=== PATIENT | female | born 1940 | race Caucasian/White ===

== ENCOUNTER 2017-09-18 03:18 | Inpatient (IN) | payer OTHER, MEDICARE ==
[~2017-09-18] VITALS: Ht 157.5 cm; Wt 76.2 kg
[~2017-09-18 03:18] MED LIST: MULTIVITAMINS1 EAC9 PO; SYNTHROID100 MCG PO
--- NOTE | 2017-09-18 10:52 | Admission Core Measures ---
Acute Coronary Syndrome (CM) ACS Core Measures Acute Coronary Syndrome Diagnosis No Congestive Heart Failure (NEW) CHF Core Measures Congestive Heart Failure Diagnosis No Cerebrovascular Accident CVA Core Measures CVA/TIA Diagnosis No Venous Thromboembolism VTE Core Valerio (View Protocol) VTE Risk Factors Surgery No Mechanical VTE Prophylaxis d/t N/A MechProphylax Ordered No VTE Pharm Prophylaxis d/t NA PharmProphylax ordered Problem List As ranked by this Provider includes Assessment & Plan 1. Unilateral primary osteoarthritis, left hip HOME MEDS Home Med List Levothyroxine Sodium (Synthroid) 100 MCG TABLET 1 TAB PO DAILY THYROID ( Reported) Multiple Vitamin (Multivitamins) 1 EACH TABLET 1 TAB PO DAILY SUPPLEMENT ( Reported)
[2017-09-18] MEDS ORDERED: COLACE100 M1 PO (10:55)
[2017-09-18] MEDS ORDERED: DILAUDID2 M1 PO (10:55)
[2017-09-18] MEDS ORDERED: ASPIRIN EC81 M1 PO (10:55)
[2017-09-18] MEDS ORDERED: PRILOSEC OTC20 M1 PO (10:55)
[2017-09-18] MEDS ORDERED: MIRALAX17 G1 PO (10:55)
--- NOTE | 2017-09-18 10:58 | Patient Discharge Instructions ---
Discharge Instructions General Discharge Information You were seen/treated for: Left hip pain related to unilateral primary osteoarthritis You had these procedures: Left total hip replacement Watch for these problems: Increasing pain despite the use of pain medication Increasing redness, warmth or swelling Drainage of any type from incision Inability to bear weight on operative leg Persistent nausea and vomiting Fever greater than 101.5 degrees Do not soak the wound: Yes No bath, but you may shower: Yes Other wound care: Please keep wound clean and dry. No ointments or lotions of any type on or near incision at any time. No exceptions. Your dressing will be changed by your nurse on the second day after your surgery. Daily dry dressing changes are recommended each day thereafter. Do not soak your wound in a bath or pool at any time until otherwise indicated by your surgeon. You may shower, please dry wound immediately after shower with a clean towel. Special Instructions: Aspirin: You are taking this medication to help prevent blood clot formation. Please take with food to protect your stomach lining. Please take as directed. Constipation: Pain medication can cause constipation. Your surgeon has recommended that you take Colace and miralax each day. You may discontinue this medication if you develop loose stool or diarrhea. If you wish to continue this medication, it is available over the counter. If you are unable to move your bowels after several days, if you are unable to pass gas and are developing bloating, nausea, or vomiting as a result, please contact your doctor. Diet Continue normal diet: Yes Recommended Diet: Regular Activity Full Activity/No Limits: No Activity Self Limited: Yes Pounds, do NOT lift more than: 10 Acute Coronary Syndrome Inclusion Criteria At DC or during hospital stay patient has or had the following: ACS DIAGNOSIS No Discharge Core Measures Meds if any: Prescribed or Continued at Discharge Meds if any: NOT Prescribed or Continued at Discharge Congestive Heart Failure Inclusion Criteria At DC or during hospital stay patient has or had the following: CHF DIAGNOSIS No Discharge Core Measures Meds if any: Prescribed or Continued at Discharge Meds if any: NOT Prescribed or Continued at Discharge Cerebrovascular accident Inclusion Criteria At DC or during hospital stay patient has or had the following: CVA/TIA Diagnosis No Discharge Core Measures Meds if any: Prescribed or Continued at Discharge Meds if any: NOT Prescribed or Continued at Discharge Venous thromboembolism Inclusion Criteria VTE Diagnosis No VTE Type NONE VTE Confirmed by (Test) NONE Discharge Core Measures - Per Current guidelines, there needs to be overlap - treatment for the first 5 days of Warfarin therapy. - If discharged on Warfarin prior to 5 days of - overlap therapy, the patient will need to be - assessed for post discharge needs including - *Post discharge parental anticoagulation - *Warfarin and/or parental anticoagulation education - *Follow up date to check INR post discharge At least 5 days overlap therapy as Inpatient No Meds if any: Prescribed or Continued at Discharge Note: Overlap Therapy is Warfarin and Anticoagulant Meds if any: NOT Prescribed or Continued at Discharge
--- NOTE | 2017-09-18 11:00 | Surgical Discharge Summary ---
Visit Information Visit Dates Admission Date: 09/18/17 Discharge Date: 09/19/17 History of Present Illness Chief Complaint: Left hip pain related to unilateral primary osteoarthritis Surgical History Pertinent Surgical History: non-contributory Review of Systems: See H&P Hospital Course Course Attending Physician: Rickie Godinez MD Primary Care Physician: Nuria MONCADA,[facility] Course: Patient was admitted to the hospital for an elective total joint replacement. The procedure was tolerated well and patient was transferred to a general surgical floor. Diet was advanced and tolerated. The patient was evaluated and treated by physical therapy. At the time of hospital discharge, the vital signs were stable, neurovascular status was intact, and pain was controlled with the use of oral pain medications. Allergies: Coded Allergies: amoxicillin (ANAPHYLAXIS 09/08/17) cortisone (ANAPHYLAXIS 09/08/17) doxycycline (ANAPHYLAXIS 09/08/17) Disposition Summary Disposition Principal Diagnosis: Left hip unilateral primary osteoarthritis Additional Diagnosis: None Discharge Disposition: home health services Discharge Instructions General Discharge Information Code Status: Full Code Patient's Diet: Regular, advance as tolerated Patient's Activity: WBAT Follow-Up Instructions/Appts: Follow up with Dr. Godinez in 6 weeks from date of surgery. Please call office to arrange &/or confirm this appointment. Medications at Discharge Discharge Medications: Continue taking these medications: Levothyroxine Sodium (Synthroid) 100 MCG TABLET 1 Tablet ORAL DAILY Comments: Last Taken: 09/19/17 Time: 0640AM Multiple Vitamin (Multivitamins) 1 EACH TABLET 1 Tablet ORAL DAILY Comments: NOT GIVEN IN HOSPITAL Start taking the following new medications: Aspirin (Ecotrin*) 81 MG TABLET.DR 1 Tablet ORAL TWICE DAILY Qty = 60 No Refills Comments: Last Taken: 09/19/17 Time: 0922AM Hydromorphone HCl (Dilaudid) 2 MG TABLET 1-2 Tablet ORAL EVERY 4-6 HOURS NEEDED as needed for PAIN Qty = 36 No Refills Comments: Last Taken: 09/19/17 Time: 0923AM Docusate Sodium (Colace) 100 MG CAPSULE 1 Capsule ORAL TWICE DAILY Qty = 14 No Refills Instructions: DISCONTINUE USE IF YOU DEVELOP LOOSE STOOL OR DIARRHEA Comments: Last Taken: 09/19/17 Time: 0922AM Polyethylene Glycol 3350 (Miralax) 17 GRAM POWD.PACK 1 Packet ORAL DAILY Qty = 7 No Refills Instructions: dissolve in water, DISCONTINUE USE IF YOU DEVELOP LOOSE STOOL OR DIARRHEA Comments: Last Taken: 09/19/17 Time: 0922AM Omeprazole Magnesium (Prilosec Otc) 20 MG TABLET. 1 Tablet ORAL DAILY Qty = 30 No Refills Comments: NOT GIVEN IN HOSPITAL
--- NOTE | 2017-09-18 12:26 | RADIOLOGY REPORT ---
EXAMINATION: XR HIP, LEFT CLINICAL INFORMATION: Status post left total hip replacement. COMPARISON: None TECHNIQUE: Two views of the left hip. FINDINGS: The patient is status post total hip arthroplasty. The femoral head prosthesis is well centered within the acetabular cup which has an estimated lateral tilt of 58 degrees and anterior tilt of approximately 30 degrees. The femoral stem is well centered in the medullary cavity of proximal femoral diaphysis. No acute periprosthetic fracture. Drainage tube is present in the lateral aspect of the hip. There is postoperative soft tissue gas lateral to the hip. IMPRESSION: The components of the left total hip arthroplasty exhibit satisfactory position and alignment. No acute periprosthetic fracture.
[2017-09-18 14:00] VITALS: BP 98/50
--- NOTE | 2017-09-18 14:18 | PN- Orthopedic ---
Subjective Subjective: Postop check: Patient comfortable, mild soreness in the left thigh and hip. No acute events postoperatively. Recovering well from anesthesia. Objective Vital Signs and I&Os Intake & Output 09/18 0809/18 0000 09/17 1600 09/17 0809/17 0000 Intake Total Output Total Balance Patient 171 lb Weight Vital signs stable, afebrile Physical Exam: Well-developed well-nourished no apparent distress. HEENT: Atraumatic, extraocular motion intact Neck: Supple, no lymphadenopathy Respiratory: No respiratory distress Extremities: No edema Left lower extremity hip dressing in place, Dressing clean dry and intact Hemovac drain in place, holding self suction, small amount of bloody drainage noted in the Hemovac drain Mild thigh swelling No signs of infection. No shortening or rotation Hip range of motion is limited and without unexpected pain Neurovascularly intact distally Bilateral calves are supple, nontender. Neuro: Alert and oriented x3 Psych: Mood affect normal, normal memory normal judgment. Skin: Warm and dry, no rash on exposed skin Assessment/Plan Assessment/Plan Postop day #0 status post left total hip arthroplasty anterior approach Perioperative antibiotics. Pain medication as needed. Out of bed Physical therapy, weightbearing as tolerated Continue IV fluids Continue Hemovac drain Regular diet Follow a.m. labs, monitoring for acute blood loss anemia Aspirin for DVT prophylaxis ALPS for DVT prophylaxis Regular home meds Dressing change postop day 2 Disposition: Plan for discharge to home tomorrow with VNA services Core Measures Venous Thromboembolism VTE Risk Factors Surgery No Mechanical VTE Prophylaxis d/t N/A MechProphylax Ordered No VTE Pharm Prophylaxis d/t NA PharmProphylax ordered
--- NOTE | 2017-09-18 15:01 | Operative Report ---
Operative/Inv Procedure Report Surgery Date: 09/18/17 Name of Procedure: Left total hip replacement Pre-Operative Diagnosis: Primary left hip DJD Post-Operative Diagnosis: Same Estimated Blood Loss: 250 Surgeon/Fish Machine Feeder: Rickie Godinez MD Anesthesia: block Operative/Procedure Note Note: Description of Procedure: The patient was taken to the operating room and positively identified. After induction of spinal anesthesia and administration of appropriate pre-operative antibiotics, the patient was positioned supine on the operating room table and all bony prominences were well padded. After performing a surgical timeout, the left lower extremity was prepped and draped in the usual sterile fashion. A direct anterior approach was made to the left hip. The incision was carried sharply through superficial soft tissues to the level of the fascia. Meticulous hemostasis was maintained with Bovie electocautery. The fascia over the tensor fascia satnam muscle was opened sharply and the interval between the TFL and the sartorius was entered bluntly taking care to stay lateral to the lateral femoral cutaneous nerve. Retractors were placed around the femoral neck and the pericapsular fat was identified. The ascending branches of the lateral femoral circumflex vessels were identified and carefully coagulated. The pericapsular fat and anterior capsule were then resected. A napkin ring osteotomy was performed and the femoral head was removed without difficulty. Attention was then turned to the acetabulum. After appropriate placement of retractors, the acetabulum was exposed. Soft tissue was cleaned from the acetabular margin and notch. Overhanging osteophytes were removed and the teardrop was exposed. The acetabulum was then sequentially reamed to accept a 52 mm Nick Tritanium hemispherical solid shell. This was impacted into place in the appropriate position and fitted with a 32 mm Trident X3 zero degree polyethylene insert. Attention was then turned to the femur. After performing the appropriate ligament releases, the proximal femur was exposed. It was then sequentially broached to accept a size 3 Nick Accolade II stem. This was trialed for leg length and stability. The trial component was removed and the final component was impacted into place. The trunnion was carefully cleaned and fit with a 32 mm, +0 Biolox delta ceramic femoral head. The hip was reduced and put through a full range of motion and found to be stable. The articular space was then irrigated with sterile saline. The periarticular soft tissues were infilitrated with Marcaine. The fascial layer was closed with interrupted #1 vicryl suture and the skin was re-approximated with interrupted 2 -0 vicryl. The skin was closed with a running 3-0 V-Lock suture. Steri-strips and a sterile dressing were applied. The patient was awakened and taken to the recovery room in satisfactory condition.
[2017-09-18 15:57] VITALS: BP 108/60
[2017-09-18 20:19] VITALS: BP 113/53
[2017-09-19 00:05] VITALS: BP 106/50
[2017-09-19 04:05] VITALS: BP 98/49
[2017-09-19 06:39] VITALS: BP 90/50
[2017-09-19 08:16] LABS: ABSOLUTE BASOPHIL COUNT 0 /CUMM (0.0-0.2); ABSOLUTE EOSINOPHIL COUNT 0.1 /CUMM (0.0-0.7); ABSOLUTE GRANULOCYTE CT 4.9 /CUMM (1.4-6.5); ABSOLUTE LYMPH COUNT 0.6 /CUMM (1.2-3.4); ABSOLUTE MONOCYTE COUNT 0.4 /CUMM (0.10-0.60); BASOPHIL % 0.5 % (0.0-2.0); EOSINOPHIL % 1.5 % (0-5); HEMATOCRIT 33.4 % (37-47); MEAN CORPUSCULAR HGB 30.8 PG (27.0-31.0); MEAN CORPUSCULAR HGB CONC 32.8 G/DL (33.0-37.0); MEAN CORPUSCULAR VOLUME 93.7 FL (81.0-99.0); MEAN PLATELET VOLUME 9.6 FL (7.4-10.4); RBC DISTRIBUTION WIDTH 13.6 % (11.5-14.5); RED BLOOD CELL CT 3.56 /CUMM (4.20-5.40)
[2017-09-19 08:25] VITALS: BP 108/50
[2017-09-19 09:57] LABS: GRANULOCYTE % 81.8 % (42.2-75.2); PLATELET COUNT 258 /CUMM (130-400)
--- NOTE | 2017-09-19 10:43 | PN- Orthopedic ---
Subjective Subjective: pt sitting in chair, complains of mild pain in left hip. drain was pulled out this morning. pt has ambulated with physical therapy and was cleared for home. voiding. tolerating diet, no nausea. Denies paresthesias BP has been low but pt deneis AVERY or dizziness. Denies CP/SOB. Objective Vital Signs and I&Os Vital Signs Date Time Temp Pulse Resp B/P B/P Pulse O2 O2 Flow FiO2 Mean Ox Delivery Rate 09/19 0825 108/50 / 0639 90/50 / 0405 97.9 69 18 98/49 98 / 0005 97.6 67 18 106/50 97 09/18 2019 97.6 71 18 113/53 98 Room Air 09/18 1557 97.9 64 18 108/60 98 / 1400 97.5 58 18 98/50 93 Room Air Intake & Output 09/19 1600 09/19 0800 09/19 0000 09/18 1600 09/18 0800 09/18 0000 Intake Total 610 1280 400 Output Total 400 850 265 360 Balance -400 -240 1015 40 Intake, IV 250 800 150 Intake, Oral 360 480 250 Output, 150 40 110 Drainage Output, Urine 400 700 225 250 Patient 168 lb Weight Weight Reported by Patient Measurement Method Physical Exam: gen- NAD resp- clear cardiac- RRR abd-soft, NT ext- left thigh dressing clean and dry. left thigh is swollen, soft. no ecchymosis. distal sensory and motor function intact. no calf tenderness Current Medications: Current Medications Sig/Arianna Start time Last Medication Dose Route Stop Time Status Admin Acetaminophen 1,000 MG Q6 09/18 1800 AC 09/19 IV 09/19 1201 0517 Acetaminophen 1,000 MG Q6 09/18 1200 DC IV 09/19 0601 Acetaminophen 975 MG ONCE 09/18 0000 DC PO 09/18 2359 Aspirin Buffered 81 MG BID 09/18 2100 AC 09/19 PO 0922 Dextrose/Sodium 1,000 ML .Q10H 09/19 0645 AC 09/19 Chloride IV 0650 Dextrose/Sodium 1,000 ML .[id number] 09/18 1400 DC 09/18 Chloride IV 1439 Docusate Sodium 100 MG BID 09/18 2100 AC 09/19 PO 0922 Hydromorphone HCl 2 MG Q4P PRN 09/18 1400 AC 09/19 PO 0923 Hydromorphone HCl 4 MG Q4P PRN 09/18 1400 AC PO Hydromorphone HCl 2 MG .STK-MED ONE 09/18 1150 DC IM 09/18 1151 Hydromorphone HCl 2 MG .STK-MED ONE 09/18 1140 DC IM 09/18 1141 Hydromorphone HCl 2 MG .STK-MED ONE 09/18 1118 DC IM 09/18 1119 Ketorolac 30 MG .STK-MED ONE 09/18 1429 DC Tromethamine IM 09/18 1430 Ketorolac 15 MG Q8P PRN 09/18 1400 AC 09/18 Tromethamine IV 09/21 1359 1432 Ketorolac 30 MG .STK-MED ONE 09/18 1129 DC Tromethamine IM 09/18 1130 Levothyroxine Sodium 0.1 MG DAILY AC 09/19 0700 AC 09/19 PO 0642 Morphine Sulfate 2 MG Q2P PRN 09/18 1400 AC IV Omeprazole 40 MG DAILY AC 09/19 07 AC PO Ondansetron HCl 4 MG Q6P PRN 09/18 1400 AC IV Oxycodone HCl 10 MG ONCE 09/18 0000 DC PO 09/18 2359 Polyethylene Glycol 17 GM DAILY 09/19 0900 AC 09/19 PO 0922 Promethazine HCl 12.5 MG Q6P PRN 09/18 1400 AC IV 09/25 1044 Vancomycin HCl 1,000 MG Q12 09/18 2100 DC 09/18 Sodium Chloride 250 ML IV 09/18 2159 2200 Vancomycin HCl 1,000 MG ONCE 09/18 0000 DC Sodium Chloride 250 ML IV 09/18 2359 Results Last 48 Hours of Labs: Laboratory Tests 09/19 07 Chemistry Sodium (137 - 145 mmol/L) 142 Potassium (3.5 - 5.1 mmol/L) 4.3 Chloride (98 - 107 mmol/L) 104 Carbon Dioxide (22 - 30 mmol/L) 29 Anion Gap (5 - 16) 8 BUN (7 - 17 mg/dL) 12 Creatinine (0.5 - 1.0 mg/dL) 0.5 Estimated GFR (>60 ml/min) > 60 BUN/Creatinine Ratio (7 - 25 %) 24.0 Hematology CBC w Diff NO MAN DIFF REQ WBC (4.8 - 10.8 /CUMM) 6.0 RBC (4.20 - 5.40 /CUMM) 3.56 L Hgb (12.0 - 16.0 G/DL) 11.0 L Hct (37 - 47 %) 33.4 L MCV (81.0 - 99.0 FL) 93.7 MCH (27.0 - 31.0 PG) 30.8 MCHC (33.0 - 37.0 G/DL) 32.8 L RDW (11.5 - 14.5 %) 13.6 Plt Count (130 - 400 /CUMM) 258 MPV (7.4 - 10.4 FL) 9.6 Gran % (42.2 - 75.2 %) 81.8 H Lymphocytes % (20.5 - 51.1 %) 9.9 L Monocytes % (1.7 - 9.3 %) 6.3 Eosinophils % (0 - 5 %) 1.5 Basophils % (0.0 - 2.0 %) 0.5 Absolute Granulocytes (1.4 - 6.5 /CUMM) 4.9 Absolute Lymphocytes (1.2 - 3.4 /CUMM) 0.6 L Absolute Monocytes (0.10 - 0.60 /CUMM) 0.4 Absolute Eosinophils (0.0 - 0.7 /CUMM) 0.1 Absolute Basophils (0.0 - 0.2 /CUMM) 0 Assessment/Plan Assessment/Plan 77yo F SP L VERITO POD1. mild hypotension since surgery. plan to continue IVF and motitor vitals today Cont IVF to treat hypotension, will re-check vitals pain management pt- wbat w rw dvt ppx- asa, teds and alps reg home meds reg diet IS dressing change pod2 dc planning- possible home later today if hypotension resolves with IV fluids Core Measures Venous Thromboembolism VTE Risk Factors Surgery No Mechanical VTE Prophylaxis d/t N/A MechProphylax Ordered No VTE Pharm Prophylaxis d/t NA PharmProphylax ordered
[2017-09-19 12:09] VITALS: BP 131/55
== END 2017-09-19 14:08 | disposition home health service (06) | DRG 470 ==
LOC: SDA 03:18 → ENRESERV 11:58 → ENTRNSPT 12:21 → EDTRNSPT 12:28 → EDTRNSPTSTS 13:19 → 2NB 13:27 → CMPTRNSPT 13:34 → ENPENDDIS 09-19 12:01 → ENTRNSPT 09-19 13:44 → EDTRNSPTSTS 09-19 14:01 → 2NB 09-19 14:08 → CMPTRNSPT 09-19 14:53
PROVIDERS: Nurse Practitioner
PROC: 0SRB04A Replacement of Left Hip Joint with Ceramic on Polyethylene Synthetic Substitute, Uncemented, Open Approach (ICD-10-PCS; principal; 2017-09-18)
DX: M16.12 Unilateral primary osteoarthritis, left hip (principal); Z88.1 Allergy status to other antibiotic agents; Z88.8 Allergy status to other drugs, medicaments and biological substances; Z96.652 Presence of left artificial knee joint
CPT/HCPCS: 2NBP; 36592; 73502-LT; 82436; 97110-GO; 97116-GO; 97161-GP; 97530-GO; J0131; J0735; J1885; J2405; J2550; J3370; J3490; J7040; J7042